=== PATIENT | male | born 1955 | race African-American/Black ===

== ENCOUNTER 2018-06-13 15:06 | Inpatient (IN) ==
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
[2018-06-13] MEDS ORDERED: Dextrose 50% in Water 50 ML Vial IV.PUSH ONE (15:45)
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
[2018-06-13 15:54] LABS: Activated Partial Thrombo Time 24.5 sec (23.4-31.7); INR 1.1 Ratio; Prothrombin Time 10.9 sec (9.8-11.6)
[2018-06-13] MEDS: Sod Chloride 0.9% Inj 1,000 ML IV.SIG SCH ×2 (16:00→17:22)
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
[2018-06-13] MEDS ORDERED: Post-op Orders (for Pharmacy) OTHER ONE (16:07)
[2018-06-13] MEDS ORDERED: Naloxone Inj 0.4 MG/ML Vial IV.PUSH PRN (16:07)
[2018-06-13] MEDS ORDERED: Bisacodyl 10 MG Supp RECTAL PRN (16:07)
[2018-06-13] MEDS ORDERED: DOPamine 400 MG/250 ML Premix 400 MG/250 ML BAG IV.CONT ONE (16:15)
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
[2018-06-13] MEDS: Pantoprazole Inj 40 MG Vial IV.PUSH SCH (17:23)
[2018-06-13 17:25] LABS: Albumin 2.8 g/dL (3.4-5.0); Calcium 7.3 mg/dL (8.5-10.1); Carbon Dioxide 21.6 meq/L (21.0-32.0); Potassium 3.9 meq/L (3.5-5.1)
[2018-06-13] MEDS ORDERED: Atropine Inj 1 MG/10 ML Syringe ONE (17:32)
[2018-06-13] MEDS ORDERED: Atropine Inj 1 MG/10 ML Syringe IV.PUSH ONE (17:35)
[2018-06-13 17:53] LABS: Total Protein 5.4 g/dL (6.4-8.2)
[2018-06-13 17:58] LABS: Troponin I 0.99 ng/mL (0.02-0.05)
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
[2018-06-13] MEDS ORDERED: DOPamine 800 MG/500 ML Premix 800 MG/500 ML PLAST..BAG IV.CONT PRN (18:00)
[2018-06-13] MEDS: Sod Chloride 0.9% Inj 1,000 ML IV.CONT SCH (18:14)
--- NOTE | 2018-06-13 18:42 | ECHRPT ---
Indication: Chest Pain CONCLUSIONS Normal left ventricular size. Wall thickness is normal. The left ventricular systolic function is normal with an estimated ejection fraction in the range of 55-60%. No definite regional wall motion abnormalities are present. The right ventriclar size is upper limits of normal. Trace mitral valve regurgitation. There is trace tricuspid valve regurgitation. Trileaflet aortic valve. Mild aortic valve sclerosis is present. BP: / HR: Rhythm: MEASUREMENTS (Male / Female) Normal Values Technical Quality:Fair 2D ECHO LV Diastolic Diameter PLAX 4.9 cm 4.2 - 5.9 / 3.9 - 5.3 cm LV Systolic Diameter PLAX 3.1 cm IVS Diastolic Thickness 1.1 cm 0.6 - 1.0 / 0.6 - 0.9 cm LVPW Diastolic Thickness 1.0 cm 0.6 - 1.0 / 0.6 - 0.9 cm LV Relative Wall Thickness 0.4 RV Internal Dim ED PLAX 3.4 cm Aortic Root Diameter 3.2 cm LA Systolic Diameter LX 3.6 cm 3.0 - 4.0 / 2.7 - 3.8 cm FINDINGS LEFT VENTRICLE Normal left ventricular size. Wall thickness is normal. The left ventricular systolic function is normal with an estimated ejection fraction in the range of 55-60%. No definite regional wall motion abnormalities are present. RIGHT VENTRICLE The right ventriclar size is upper limits of normal. LEFT ATRIUM The left atrial size is normal. RIGHT ATRIUM The right atrial size is normal. ATRIAL SEPTUM Normal atrial septal thickness without atrial level shunting by limited color doppler interrogation. AORTA The aortic root and proximal ascending aorta are normal in size on limited imaging. MITRAL VALVE Trace mitral valve regurgitation. AORTIC VALVE Trileaflet aortic valve. Mild aortic valve sclerosis is present. TRICUSPID VALVE There is trace tricuspid valve regurgitation. PULMONARY VALVE Trivial pulmonary valve regurgitation. VESSELS The inferior vena cava (IVC) is normal in size. PERICARDIUM There is no pericardial effusion. Brandin William MD (Electronically Signed) Final Date:13 June 2018 18:41
[2018-06-13 19:09] LABS: ABG Base Excess -2.4 mmol/L (-2-2); ABG PCO2 42 mmHg (38-42); ABG PO2 194 mmHg (61-120)
[2018-06-13] MEDS: Senna/Docusate Sodium 8.6/50 MG Tablet PO SCH (20:05)
--- NOTE | 2018-06-13 21:09 | MP ---
cc: Salvador Howell MD DATE OF OPERATION: 06/13/2018 PREOPERATIVE DIAGNOSIS: Neurogenic shock, cervical fracture. POSTOPERATIVE DIAGNOSIS: Neurogenic shock, cervical fracture. PROCEDURE PERFORMED: Triple lumen placement, left subclavian. SURGEON: Salvador Howell MD ANESTHESIA: 1% Xylocaine. ESTIMATED BLOOD LOSS: Minimal. DESCRIPTION OF PROCEDURE: The patient was prepped and draped in the usual fashion. The area was infiltrated with 1% Xylocaine. Needle was inserted in the left subclavian vein. Through the needle, the J-wire was passed. Over the J wire, dilator and triple lumen were placed. Triple lumen sutured was in place with 2-0 silk. The patient tolerated the procedure well. MD JOSE Kendall/ryne , 06:07 PM , 06:11 PM
[2018-06-14 00:19] LABS: Hematocrit 38.1 % (39.0-51.0); Hemoglobin 12.8 gm/dL (13.0-17.0); Lymph # (Auto) 0.5 th/mm3 (1.0-4.8); Mean Corpuscular HGB Conc 33.6 % (32.0-36.0); Mean Corpuscular Volume 80.3 fL (80.0-100.0); Mean Platelet Volume 8.7 fL (7.0-11.0); Mono # (Auto) 0.5 th/mm3 (0.0-0.9); Neut # (Auto) 8.2 th/mm3 (1.8-7.7); Platelet Count 176 th/mm3 (150-450); Red Blood Count 4.75 mil/mm3 (4.50-5.90); Red Cell Distribution Width 15.1 % (11.6-17.2); White Blood Count 9.1 th/mm3 (4.0-11.0)
[2018-06-14] MEDS: Sod Chloride 0.9% Inj 1,000 ML IV.CONT SCH ×3 (04:14→23:44)
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
[2018-06-14 05:40] LABS: Hematocrit 38.4 % (39.0-51.0); Hemoglobin 12.7 gm/dL (13.0-17.0); Lymph # (Auto) 0.5 th/mm3 (1.0-4.8); Lymph % (Auto) 5.3 % (9.0-44.0); Mean Corpuscular HGB Conc 33.1 % (32.0-36.0); Mean Corpuscular Volume 81.6 fL (80.0-100.0); Mean Platelet Volume 8.7 fL (7.0-11.0); Mono # (Auto) 0.4 th/mm3 (0.0-0.9); Mono % (Auto) 4.6 % (0.0-8.0); Neut # (Auto) 8.5 th/mm3 (1.8-7.7); Neut % (Auto) 90.1 % (16.0-70.0); Platelet Count 146 th/mm3 (150-450); Red Blood Count 4.71 mil/mm3 (4.50-5.90); Red Cell Distribution Width 15.3 % (11.6-17.2); White Blood Count 9.4 th/mm3 (4.0-11.0)
[2018-06-14 05:50] LABS: ABG Base Excess -0.6 mmol/L (-2-2); ABG PCO2 43 mmHg (38-42); ABG PO2 97 mmHg (61-120)
[2018-06-14] MEDS ORDERED: Dextrose 50% in Water 50 ML Vial IV.PUSH PRN (05:54)
[2018-06-14 06:18] LABS: Calcium 7.7 mg/dL (8.5-10.1); Carbon Dioxide 25.2 meq/L (21.0-32.0); Potassium 3.7 meq/L (3.5-5.1)
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
[2018-06-14] MEDS: Senna/Docusate Sodium 8.6/50 MG Tablet PO SCH ×2 (08:21→20:04)
[2018-06-14] MEDS: Chlorhexidine 0.12% Oral Kit 15 ML UDC OROPHARYNG SCH ×2 (08:21→20:04)
--- NOTE | 2018-06-14 08:35 | ECG ---
Date Performed: 06/13/2018 Time Performed: 17:00:30 PTAGE: 62 years EKG: Possible ectopic atrial bradycardia with PAC(s). Prolonged QT interval Septal T wave change s are nonspecific Borderline ECG NO PREVIOUS TRACING DOCTOR: Timmy Scott Interpretating Date/Time 06/14/2018 08:32:21
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
--- NOTE | 2018-06-14 11:02 | P.PNNS ---
Subjective Interval history: intubated, sedated. Physical Exam Vital signs: Vital Signs 06/13/18 15:19 06/13/18 16:03 06/13/18 16:19 Temperature Pulse Rate Respiratory Rate 16 Blood Pressure 97/57 L Pulse Oximetry 100 100 06/13/18 16:21 06/13/18 16:23 06/13/18 16:25 Temperature 93.7 F L 93.7 F L 93.6 F L Pulse Rate 51 L 49 L 49 L Respiratory Rate 17 16 16 Blood Pressure 95/55 L 92/53 L 97/54 L Pulse Oximetry 99 98 97 06/13/18 16:27 06/13/18 16:29 06/13/18 16:30 Temperature 93.6 F L 93.6 F L 93.6 F L Pulse Rate 49 L 54 L 54 L Respiratory Rate 16 17 17 Blood Pressure 108/55 L 112/62 Pulse Oximetry 97 97 98 06/13/18 16:31 06/13/18 16:33 06/13/18 16:35 Temperature 93.6 F L 93.6 F L 93.6 F L Pulse Rate 52 L 54 L 52 L Respiratory Rate 16 21 17 Blood Pressure 112/60 101/56 L 107/55 L Pulse Oximetry 98 99 98 06/13/18 16:37 06/13/18 16:39 06/13/18 16:41 Temperature 93.4 F L 93.4 F L 93.4 F L Pulse Rate 47 L 45 L 49 L Respiratory Rate 16 17 18 Blood Pressure 106/55 L 96/52 L 96/53 L Pulse Oximetry 98 97 97 06/13/18 16:43 06/13/18 16:45 06/13/18 16:47 Temperature 93.2 F L 93.2 F L 93.4 F L Pulse Rate 47 L 44 L 47 L Respiratory Rate 25 H 16 19 Blood Pressure 97/54 L 96/53 L 102/52 L Pulse Oximetry 97 97 98 06/13/18 16:49 06/13/18 16:51 06/13/18 17:00 Temperature 93.4 F L 93.2 F L 93.0 F L Pulse Rate 47 L 40 L 42 L Respiratory Rate 21 25 H Blood Pressure 104/53 L 111/53 L Pulse Oximetry 98 98 98 06/13/18 17:01 06/13/18 17:15 06/13/18 17:16 Temperature 92.8 F L 93.0 F L 93.0 F L Pulse Rate 41 L 41 L 43 L Respiratory Rate 22 17 16 Blood Pressure 120/58 L 118/58 L Pulse Oximetry 98 97 97 06/13/18 17:30 06/13/18 17:31 06/13/18 17:45 Temperature 93.0 F L 93.0 F L 93.2 F L Pulse Rate 43 L 95 H Respiratory Rate 16 16 16 Blood Pressure 110/55 L Pulse Oximetry 98 98 100 06/13/18 17:46 06/13/18 18:00 06/13/18 18:01 Temperature 93.2 F L 93.6 F L 93.6 F L Pulse Rate 95 H 88 88 Respiratory Rate 16 16 16 Blood Pressure 110/61 103/62 Pulse Oximetry 100 100 100 06/13/18 18:15 06/13/18 20:00 06/13/18 20:01 Temperature 93.9 F L 96.4 F L 96.4 F L Pulse Rate 88 78 79 Respiratory Rate 16 16 16 Blood Pressure 117/80 Pulse Oximetry 100 100 100 06/13/18 20:16 06/13/18 20:31 06/13/18 20:46 Temperature 96.8 F L 97.2 F L 97.5 F L Pulse Rate 81 80 82 Respiratory Rate 16 16 16 Blood Pressure 115/79 117/80 116/81 Pulse Oximetry 100 100 100 06/13/18 20:53 06/13/18 21:00 06/13/18 21:01 Temperature 97.9 F 97.9 F Pulse Rate 84 82 Respiratory Rate 16 16 16 Blood Pressure 122/86 Pulse Oximetry 100 100 100 06/13/18 21:16 06/13/18 21:31 06/13/18 21:46 Temperature 98.4 F 98.8 F 99.1 F Pulse Rate 60 61 61 Respiratory Rate 16 16 16 Blood Pressure 96/63 L 95/59 L 94/59 L Pulse Oximetry 100 100 100 06/13/18 22:00 06/13/18 22:01 06/13/18 22:16 Temperature 99.3 F 99.3 F 99.7 F H Pulse Rate 61 61 61 Respiratory Rate 16 16 16 Blood Pressure 92/61 L 95/62 L Pulse Oximetry 100 100 100 06/13/18 22:31 06/13/18 22:46 06/13/18 23:00 Temperature 99.9 F H 100.0 F H 100.2 F H Pulse Rate 62 63 64 Respiratory Rate 16 16 16 Blood Pressure 93/61 L 96/62 L Pulse Oximetry 100 100 100 06/13/18 23:01 06/13/18 23:16 06/13/18 23:31 Temperature 100.2 F H 100.4 F H 100.6 F H Pulse Rate 63 63 64 Respiratory Rate 16 16 16 Blood Pressure 96/63 L 98/62 L 96/61 L Pulse Oximetry 100 100 100 06/13/18 23:46 06/14/18 00:00 06/14/18 00:01 Temperature 100.8 F H 100.8 F H 100.8 F H Pulse Rate 63 64 64 Respiratory Rate 16 16 16 Blood Pressure 97/61 L 100/61 Pulse Oximetry 100 100 100 06/14/18 00:16 06/14/18 00:31 06/14/18 00:40 Temperature 100.8 F H 100.8 F H Pulse Rate 63 63 Respiratory Rate 16 16 16 Blood Pressure 99/61 L 96/59 L Pulse Oximetry 100 100 100 06/14/18 00:46 06/14/18 01:00 06/14/18 01:01 Temperature 100.6 F H 100.6 F H 100.6 F H Pulse Rate 63 62 63 Respiratory Rate 16 16 16 Blood Pressure 94/60 L 97/60 L Pulse Oximetry 100 100 100 06/14/18 01:16 06/14/18 01:31 06/14/18 01:46 Temperature 100.6 F H 100.4 F H 100.4 F H Pulse Rate 62 62 61 Respiratory Rate 16 16 16 Blood Pressure 95/60 L 96/61 L 94/60 L Pulse Oximetry 100 100 100 06/14/18 02:00 06/14/18 02:01 06/14/18 02:16 Temperature 100.4 F H 100.4 F H 100.2 F H Pulse Rate 61 61 60 Respiratory Rate 16 16 16 Blood Pressure 98/61 L 97/61 L Pulse Oximetry 100 100 100 06/14/18 02:31 06/14/18 02:46 06/14/18 03:00 Temperature 100.2 F H 100.0 F H 100.0 F H Pulse Rate 60 59 L 59 L Respiratory Rate 16 16 16 Blood Pressure 102/61 100/63 Pulse Oximetry 100 100 100 06/14/18 03:01 06/14/18 03:16 06/14/18 03:31 Temperature 100.0 F H 99.9 F H 99.9 F H Pulse Rate 59 L 59 L 59 L Respiratory Rate 16 16 16 Blood Pressure 99/62 L 97/61 L 97/62 L Pulse Oximetry 100 100 100 06/14/18 03:46 06/14/18 04:00 06/14/18 04:01 Temperature 99.7 F H 99.5 F 99.7 F H Pulse Rate 59 L 59 L 58 L Respiratory Rate 16 16 16 Blood Pressure 102/62 100/62 Pulse Oximetry 100 100 100 06/14/18 04:16 06/14/18 04:20 06/14/18 04:31 Temperature 99.3 F 99.3 F Pulse Rate 59 L 59 L Respiratory Rate 16 16 11 L Blood Pressure 99/61 L 99/62 L Pulse Oximetry 100 100 100 06/14/18 04:46 06/14/18 05:00 06/14/18 05:01 Temperature 99.3 F 99.3 F 99.3 F Pulse Rate 59 L 59 L 59 L Respiratory Rate 16 16 16 Blood Pressure 99/61 L 96/60 L Pulse Oximetry 100 100 100 06/14/18 05:16 06/14/18 05:46 06/14/18 06:00 Temperature 99.1 F 99.0 F 99.0 F Pulse Rate 58 L 59 L 58 L Respiratory Rate 16 16 16 Blood Pressure 98/61 L 103/57 L Pulse Oximetry 100 100 100 06/14/18 06:01 06/14/18 06:16 06/14/18 06:31 Temperature 99.0 F 99.0 F 98.8 F Pulse Rate 58 L 58 L 59 L Respiratory Rate 16 16 16 Blood Pressure 92/57 L 92/59 L 99/64 L Pulse Oximetry 100 100 100 06/14/18 10:12 Temperature Pulse Rate 57 L Respiratory Rate 16 Blood Pressure Pulse Oximetry 100 Intake & Output 06/13/18 06/14/18 06/14/18 18:59 06:59 18:59 Intake Total 1999 1250 / 1250 Output Total 215 / 2150 1200 / 1200 Balance -150 / -150 50 / 50 Weight 75.6 kg 85.2 kg Intake: IV 1999 1250 / 1250 NS Inj 1,000 ML @ 100 mls/hr IV 1000 / 1000 .CONT .Q10H [facility] Rx#:[id number] Levophed-Dextrose 4 mg/250 ml 250 / 250 Drip 4 mg In 250 ml @ 2 MCG/MIN 7.5 mls/hr IV.SIG TITRATE PRN Rx#:[id number] NS Inj 1,000 ML @ 1000 mls/hr 1999 IV.SIG .Q1H [facility] Rx#:[id number] Output: Urine Amount (Catheter) 2149 1050 / 1050 Indwelling Urethral Catheter 2149 1050 / 1050 Gastric Drainage 150 / 150 Oral Orogastric Tube 150 / 150 Other: Weight On Admission 75.6 kg Narrative: GENERAL: Intubated sedated SKIN: Warm and dry. HEAD: Atraumatic. Normocephalic. EYES: Pupils equal and round. No scleral icterus. No injection or drainage. ENT: No nasal bleeding or discharge. Mucous membranes pink and moist. NECK: Trachea midline. No JVD. Cervical collar in place. CARDIOVASCULAR: Regular rate and rhythm. RESPIRATORY: mechanically ventilated GASTROINTESTINAL: Abdomen soft, nondistended. MUSCULOSKELETAL: Extremities without clubbing, cyanosis, or edema. No obvious deformities. NEUROLOGICAL: Sedated, pupils pinpoint bilaterally. Conjugate gaze. Not following commands for testing, gross withdrawal RUE to nailbed pressure. - Urinary Catheter Management Indwelling Urethral Catheter Cath placed during this visit: yes Reason for continuing: Hourly intake/output Insertion date: 06/13/18 Assessment and Plan - Plan Adult male status post trauma code and CPR resuscitation, hemodynamically unstable Cervical spinal fractures Cervical Spine CT 06/13/18 15:10 CONCLUSION: 1. Slightly comminuted fracture of both the anterior and posterior arch of C1 with associated type II dens fracture 2. Hyperflexion injury suspected at C3-C4 with anterior teardrop. 3. Minimal anterior wedging of C5 4. Constellation images would suggest a high cervical spine injury. MRI could be used to confirm as soon as clinically stable. Head CT 06/13/18 15:10 CONCLUSION: No evidence of acute intracranial pathology. No masses are identified. Unstable fracture of the anterior and posterior arch of C1 Neuro: neuro checks in a serial fashion. No clinical evidence of severe head injury or intracranial hemorrhage. Poor mental status likely related to cardiac arrest and anoxic injury. For MRI Brain. Cervical fractures. cont supportive care. [place] J collar. When he is stable, will obtain MRI cervical spine. For MRI Cervical spine. Pulmonary: Full mechanical ventilation, aggressive pulmonary toilette, nasotracheal suction, and breathing treatments with nebulizers. Arterial line and central venous catheter Daily PT and OT Renal: Continue to monitor closely urine output, BUN and creatinine Endocrine: Continue to Monitor serial Acu checks and SSI as needed in detail ID continue to monitor for signs of infection Continue Protonix for stress ulcer prophylaxis Continue Pk hose and SCD's for DVT prophylaxis Further recommendations will be provided depending on the patient's clinical evaluation and follow up studies. Discussed with trauma surgeon
[2018-06-14] MEDS: Enoxaparin Inj 40 MG/0.4 ML Syringe SQ SCH (11:17)
[2018-06-14] MEDS: Oral Hygiene Kit OROPHARYNG SCH ×3 (11:17→23:44)
--- NOTE | 2018-06-14 14:34 | MR ---
EXAM DATE: 06/14/2018 2:10 PM EST AGE/SEX: 62 years / Male INDICATIONS: . Anoxic injury. CLINICAL DATA: This is the patient's subsequent encounter. Patient reports that signs and symptoms h ave been present for 2 days and indicates a pain score of Nonresponsive. MEDICAL/SURGICAL HISTORY: None. None. COMPARISON: [facility] – [place], [place] CERVICAL SPINE W/O CONTRAST, 06/13/2018. . TECHNIQUE: Multiplanar, multisequence examination of the brain was performed without contrast. FINDINGS: Cerebrum: Focal encephalomalacia with underlying gliosis is identified in the right frontal lobe. Pu nctate foci of magnetic susceptibility are identified along the argueta-white junction of the frontal lo bes. There is focal susceptibility identified in the occipital horns of both lateral ventricles. Cortical restricted diffusion is evident in the left occipital lobe. White Matter: Mild to moderate periventricular T2 hyperintensities are seen throughout both cerebral hemispheres. Posterior Fossa: Several foci of restricted diffusion are identified in the right cerebellar hemisphe re. T2 hyperintensity is identified in the lower brainstem at the cervical medullary junction extendi ng into the cervical spinal cord. Diffusion Imaging: Diffusion abnormalities are identified in the left occipital lobe and right cereb ellum. Extracranial: The visualized portions of the orbits and paranasal sinuses are unremarkable. CONCLUSION: 1. Areas of restricted diffusion are noted in the left occipital lobe and right cerebellum character istic of small acute infarcts. 2. Punctate foci of magnetic susceptibility characteristic of microbleeds along the argueta-white junct ion in the frontal lobes. These are characteristic of axonal injury. 3. Mild to moderate cerebral white matter T2 hyperintensity characteristic of chronic ischemic micro vascular disease. 4. Small amount of hemorrhage is identified in both ventricles. 5. No significant mass effect or extra-axial fluid collections. 6. T2 hyperintensity in the lower brainstem and cervical spinal cord characteristic of edema from th e patient's cervical injury. Electronically signed by: Curtis Richey MD 06/14/2018 2:33 PM EST
--- NOTE | 2018-06-14 14:54 | MR ---
EXAM DATE: 06/14/2018 2:30 PM EST AGE/SEX: 62 years / Male INDICATIONS: Trauma. CLINICAL DATA: This is the patient's subsequent encounter. Patient reports that signs and symptoms h ave been present for 2 days and indicates a pain score of Nonresponsive. MEDICAL/SURGICAL HISTORY: None. None. COMPARISON: [facility] [place] CERV[place]/O CONTRAST, 06/13/2018. . TECHNIQUE: Multiplanar, multisequence MRI examination of the cervical spine was performed without co ntrast. FINDINGS: ALIGNMENT: Focal displacement of the odontoid in relation to the body of C2 has developed compared t o the CT scan. There is anterior displacement of the dens by approximately 5 mm. Very slight anterolisthesis is noted of C6 on C7. Cervical vertebral body alignment is otherwise well -maintained.. FACET AND OSSEOUS STRUCTURES: Mildly displaced fracture is identified through the base of the odonto id with slight subluxation as described above. C1 fractures are not clearly visualized. There are no other vertebral body fractures identified. Face t joints are satisfactory aligned. Small effusions are identified in the C3-4 facet joints. Significa nt T2 hyperintensity and inflammation is seen in the posterior paraspinal muscles and supporting stru ctures throughout the cervical spine. There are no paraspinal soft tissue hematomas. INTERVERTEBRAL DISC SPACES: Mild to moderate degenerative disc disease is noted. Posterior broad-bas ed disc osteophyte complex is identified at C6-7. There is marginal spondylosis at C4-5 and C5-6. The re is no evidence of traumatic disc herniation NEUROLOGIC STRUCTURES: Abnormal signal intensity is identified in the upper cervical spinal cord exte nding into the lower medulla oblongata. Gradient echo imaging demonstrates susceptibility within the spinal cord at the C2 level. There is slight cord expansion and small anterior perimedullary hematoma . Spinal cord edema extends caudally to approximately the bottom of C3. There are no epidural or intradural hematomas. Also noted is significant edema surrounding the right-sided carotid sheath structures. CONCLUSION: 1. Traumatic spinal cord injury at the C2 level which includes edema and hemorrhage. Compromised cor d integrity is suspected 2. Mildly displaced fracture through the base of the odontoid 3. No evidence of significant spinal canal compromise, cord compression or significant extra-axial h ematoma. 4. Posterior paraspinal soft tissue injury with edema 5. Satisfactory alignment of the facet joints without subluxation 6. Edematous changes surrounding the right carotid sheath structures. Electronically signed by: Curtis Richey MD 06/14/2018 2:53 PM EST
[2018-06-14] MEDS: Pantoprazole Inj 40 MG Vial IV.PUSH SCH (16:42)
[2018-06-14] MEDS ORDERED: Sod Chloride 0.9% Inj 1,000 ML IV.SIG ONE (18:30)
--- NOTE | 2018-06-15 04:13 | XR ---
EXAM DATE: 06/15/2018 4:06 AM EST AGE/SEX: 62 years / Male INDICATIONS: Aspiration. CLINICAL DATA: This is the patient's initial encounter. Patient reports that signs and symptoms have been present for 2 days and indicates a pain score of Nonresponsive. MEDICAL/SURGICAL HISTORY: . Cervical spine fracture Non-responsive. COMPARISON: [facility], CHEST 1V SINGLE AP, 06/14/2018. . FINDINGS: Single AP view the chest. Endotracheal tube, nasogastric tube, left subclavian central venous cathete r remain in place. Increased patchy opacity at the right lower lung zone with mild obscuration of the hemidiaphragm. Lungs otherwise clear. No evidence of pleural effusion or pneumothorax. CONCLUSION: New patchy right lung base opacity indicating atelectasis versus mild consolidation. Electronically signed by: Reggie Huddleston MD 06/15/2018 4:12 AM EST
[2018-06-15] MEDS: Oral Hygiene Kit OROPHARYNG SCH ×3 (04:27→16:10)
[2018-06-15 05:32] LABS: ABG Base Excess 1.9 mmol/L (-2-2); ABG PCO2 46 mmHg (38-42); ABG PO2 83 mmHg (61-120)
[2018-06-15 06:14] LABS: Hematocrit 36.2 % (39.0-51.0); Lymph # (Auto) 0.6 th/mm3 (1.0-4.8); Lymph % (Auto) 6.4 % (9.0-44.0); Mean Corpuscular Volume 81.9 fL (80.0-100.0); Mean Platelet Volume 8.9 fL (7.0-11.0); Mono # (Auto) 0.5 th/mm3 (0.0-0.9); Mono % (Auto) 5.9 % (0.0-8.0); Neut # (Auto) 7.5 th/mm3 (1.8-7.7); Neut % (Auto) 87.7 % (16.0-70.0); Platelet Count 122 th/mm3 (150-450); Red Blood Count 4.42 mil/mm3 (4.50-5.90); Red Cell Distribution Width 15.6 % (11.6-17.2); White Blood Count 8.5 th/mm3 (4.0-11.0)
[2018-06-15 06:45] LABS: Anion Gap 6 meq/L (5-15); Blood Urea Nitrogen 21 mg/dL (7-18); Calcium 8.3 mg/dL (8.5-10.1); Chloride 117 meq/L (98-107); Glomerular Filtration Rate Greater Than 89 mL/min (>89); Glucose,Random 122 mg/dL (74-106); Potassium 3.6 meq/L (3.5-5.1); Sodium 150 meq/L (136-145)
[2018-06-15] MEDS: Senna/Docusate Sodium 8.6/50 MG Tablet PO SCH ×2 (08:33→21:38)
[2018-06-15] MEDS: Enoxaparin Inj 40 MG/0.4 ML Syringe SQ SCH (08:33)
[2018-06-15] MEDS: Chlorhexidine 0.12% Oral Kit 15 ML UDC OROPHARYNG SCH ×2 (08:33→20:30)
[2018-06-15] MEDS: Sod Chloride 0.9% Inj 1,000 ML IV.CONT SCH ×3 (08:34→19:01)
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
--- NOTE | 2018-06-15 14:51 | P.PNPAL ---
Palliative care SW asked to assist with contacting patient's son, Triny Barros , currently incarcerated in [facility] [place] [phone]. Spoke with classification packing supervisor, Ms. Hendrix. Phone conference with son set up for 06/16 at 10am (#[phone]). Follow-up on accurint request to obtain potential family members. [employer] produced possible match: * Marifer Barros: [phone] (VM left requesting call back); [phone] ( just rings, unable to leave message)
[2018-06-15] MEDS: Pantoprazole Inj 40 MG Vial IV.PUSH SCH (17:32)
--- NOTE | 2018-06-15 22:40 | XR ---
EXAM DATE: 06/15/2018 10:37 PM EST AGE/SEX: 62 years / Male INDICATIONS: Shortness of breath. CLINICAL DATA: This is the patient's subsequent encounter. Patient reports that signs and symptoms h ave been present for 2 days and indicates a pain score of Nonresponsive. MEDICAL/SURGICAL HISTORY: . Cervical spine fracture. None. COMPARISON: [facility], CHEST 1V SINGLE AP, 06/15/2018. . FINDINGS: 2 AP portable erect views of the chest were obtained and again demonstrate the endotracheal tube in p lace with the tip at the level of thoracic inlet. The left subclavian central venous line remains in place. The nasogastric tube is unchanged in position. The heart size appears enlarged. Abnormal opaci ty is present in the right lung base which appears mildly increased. There is blunting of the right c ostophrenic angle. CONCLUSION: Increased opacity at the right lung base with blunting of the costophrenic angle. The findings are co ncerning for pneumonia. Electronically signed by: David Mckinney MD 06/15/2018 10:39 PM EST
[2018-06-15 23:03] LABS: Baso % (Auto) 0.1 % (0.0-2.0); Hematocrit 34.9 % (39.0-51.0); Hemoglobin 11.5 gm/dL (13.0-17.0); Lymph # (Auto) 0.5 th/mm3 (1.0-4.8); Lymph % (Auto) 7.6 % (9.0-44.0); Mean Corpuscular HGB Conc 32.9 % (32.0-36.0); Mean Corpuscular Hemoglobin 26.6 pg (27.0-34.0); Mean Corpuscular Volume 80.8 fL (80.0-100.0); Mean Platelet Volume 8.9 fL (7.0-11.0); Mono # (Auto) 0.5 th/mm3 (0.0-0.9); Mono % (Auto) 8.1 % (0.0-8.0); Neut # (Auto) 5.1 th/mm3 (1.8-7.7); Neut % (Auto) 84.2 % (16.0-70.0); Platelet Count 118 th/mm3 (150-450); Red Blood Count 4.32 mil/mm3 (4.50-5.90); Red Cell Distribution Width 15.4 % (11.6-17.2)
[2018-06-15 23:21] LABS: Albumin 2.5 g/dL (3.4-5.0); Anion Gap 7 meq/L (5-15); Aspartate Aminotransferase 132 U/L (15-37); Blood Urea Nitrogen 21 mg/dL (7-18); Carbon Dioxide 27.5 meq/L (21.0-32.0); Chloride 117 meq/L (98-107); Glomerular Filtration Rate Greater Than 89 mL/min (>89); Glucose,Random 125 mg/dL (74-106); Potassium 3.4 meq/L (3.5-5.1); Sodium 151 meq/L (136-145)
[2018-06-15 23:22] LABS: Alanine Aminotransferase 139 U/L (12-78)
[2018-06-15 23:23] LABS: Activated Partial Thrombo Time 28.7 sec (23.4-31.7); INR 1.1 Ratio; Prothrombin Time 11.1 sec (9.8-11.6)
[2018-06-15 23:24] LABS: Alkaline Phosphatase 45 U/L (45-117)
[2018-06-16 00:39] LABS: ABG Base Excess 2.9 mmol/L (-2-2); ABG PCO2 42 mmHg (38-42); ABG PO2 83 mmHg (61-120)
[2018-06-16] MEDS: Oral Hygiene Kit OROPHARYNG SCH ×3 (00:58→11:50)
[2018-06-16] MEDS: Piperacil/Tazo 3.375 GM Premix 50 ML IV.SIG SCH ×2 (00:58→08:26)
[2018-06-16] MEDS ORDERED: Sodium Phosphate Inj 30 MMOL in Sodium Chlor 0.9% Inj 250 ML IV.SIG PRN (01:11)
[2018-06-16] MEDS ORDERED: Potassium Phosphate 500 MG Soluble Tablet PO PRN ×2 (01:11)
[2018-06-16] MEDS ORDERED: Potassium Chlor 20 mEq Premix 20 MEQ/100 ML PIGGYBACK IV.SIG PRN ×2 (01:11)
[2018-06-16] MEDS ORDERED: Magnesium Sulfate Inj 4 GM in Sodium Chlor 0.9% Inj 92 ML IV.SIG PRN (01:11)
[2018-06-16] MEDS ORDERED: Magnesium Sulfate Inj 2 GM in Sodium Chlor 0.9% Inj 96 ML IV.SIG PRN (01:11)
[2018-06-16] MEDS ORDERED: Potassium Phosphate Inj 30 MMOL in Sodium Chlor 0.9% Inj 250 ML IV.SIG PRN (01:11)
[2018-06-16] MEDS ORDERED: Potassium Chloride 25 MEQ Effervescent Tablet PO PRN (01:11)
[2018-06-16] MEDS ORDERED: Magnesium Oxide 400 MG Tablet PO PRN (01:11)
[2018-06-16] MEDS ORDERED: Potassium Chlor 40 mEq Premix 40 MEQ/100 ML PIGGYBACK IV.SIG PRN ×2 (01:11)
[2018-06-16 01:15] LABS: Bilirubin,Urine Negative (Negative); Clarity,Urine Cloudy (Clear); Color,Urine Amber (Yellw/Straw); Glucose,Urine (UA) Negative (Negative); Leukocyte Esterase,Urine Large (Negative); Mucus,Urine Many /lpf (Occasional); Nitrite,Urine Negative (Negative); Specific Gravity,Urine 1.039 (1.002-1.035)
[2018-06-16 04:39] LABS: ABG Base Excess 3.4 mmol/L (-2-2); ABG PCO2 40 mmHg (38-42); ABG PO2 86 mmHg (61-120)
[2018-06-16] MEDS: Sod Chloride 0.9% Inj 1,000 ML IV.CONT SCH (05:58)
[2018-06-16 07:02] LABS: Eos % (Auto) 0.1 % (0.0-4.0); Hemoglobin 11.3 gm/dL (13.0-17.0); Lymph # (Auto) 0.5 th/mm3 (1.0-4.8); Mean Corpuscular HGB Conc 33.2 % (32.0-36.0); Mean Corpuscular Hemoglobin 26.9 pg (27.0-34.0); Mean Corpuscular Volume 81.1 fL (80.0-100.0); Mean Platelet Volume 9.2 fL (7.0-11.0); Mono # (Auto) 0.5 th/mm3 (0.0-0.9); Neut # (Auto) 4.2 th/mm3 (1.8-7.7); Neut % (Auto) 81.9 % (16.0-70.0); Platelet Count 117 th/mm3 (150-450); Red Blood Count 4.19 mil/mm3 (4.50-5.90); Red Cell Distribution Width 15.6 % (11.6-17.2); White Blood Count 5.1 th/mm3 (4.0-11.0)
[2018-06-16 07:09] LABS: Activated Partial Thrombo Time 28.3 sec (23.4-31.7); INR 1.1 Ratio; Prothrombin Time 10.9 sec (9.8-11.6)
[2018-06-16 07:31] LABS: Alanine Aminotransferase 129 U/L (12-78); Albumin 2.4 g/dL (3.4-5.0); Anion Gap 6 meq/L (5-15); Aspartate Aminotransferase 128 U/L (15-37); Blood Urea Nitrogen 23 mg/dL (7-18); Carbon Dioxide 28.3 meq/L (21.0-32.0); Chloride 119 meq/L (98-107); Glomerular Filtration Rate Greater Than 89 mL/min (>89); Glucose,Random 121 mg/dL (74-106); Potassium 3.5 meq/L (3.5-5.1); Sodium 153 meq/L (136-145)
[2018-06-16 07:42] LABS: Alkaline Phosphatase 47 U/L (45-117)
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
[2018-06-16 08:19] LABS: Eosinophils 1 % (0-4); Lymphocytes 9 % (9-44); Monocytes 9 % (0-8); Platelet Morphology Normal (Normal)
[2018-06-16 08:20] LABS: RBC Morphology Normal (Normal)
[2018-06-16] MEDS: Senna/Docusate Sodium 8.6/50 MG Tablet PO SCH (08:26)
[2018-06-16] MEDS: Enoxaparin Inj 40 MG/0.4 ML Syringe SQ SCH (08:26)
[2018-06-16] MEDS: Chlorhexidine 0.12% Oral Kit 15 ML UDC OROPHARYNG SCH (08:26)
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
[2018-06-16 13:36] LABS: Eos % (Auto) 0.4 % (0.0-4.0); Hematocrit 33.4 % (39.0-51.0); Hemoglobin 11.1 gm/dL (13.0-17.0); Lymph # (Auto) 0.5 th/mm3 (1.0-4.8); Lymph % (Auto) 9.7 % (9.0-44.0); Mean Corpuscular HGB Conc 33.1 % (32.0-36.0); Mean Corpuscular Hemoglobin 27.2 pg (27.0-34.0); Mean Platelet Volume 9.5 fL (7.0-11.0); Mono # (Auto) 0.5 th/mm3 (0.0-0.9); Mono % (Auto) 8.6 % (0.0-8.0); Neut # (Auto) 4.5 th/mm3 (1.8-7.7); Neut % (Auto) 81.3 % (16.0-70.0); Platelet Count 121 th/mm3 (150-450); Red Blood Count 4.07 mil/mm3 (4.50-5.90); Red Cell Distribution Width 15.5 % (11.6-17.2); White Blood Count 5.6 th/mm3 (4.0-11.0)
[2018-06-16 13:46] LABS: Activated Partial Thrombo Time 31.8 sec (23.4-31.7); INR 1.2 Ratio; Prothrombin Time 11.9 sec (9.8-11.6)
[2018-06-16] MEDS ORDERED: Hyoscyamine Inj 0.5 MG/ML Ampul IV.PUSH ONE (14:00)
[2018-06-16] MEDS ORDERED: Morphine Sulfate Inj 8 MG/ML Vial IV.PUSH ONE (14:00)
[2018-06-16 14:01] LABS: Albumin 2.3 g/dL (3.4-5.0); Anion Gap 7 meq/L (5-15); Aspartate Aminotransferase 114 U/L (15-37); Blood Urea Nitrogen 22 mg/dL (7-18); Calcium 9.3 mg/dL (8.5-10.1); Carbon Dioxide 28.2 meq/L (21.0-32.0); Chloride 118 meq/L (98-107); Glomerular Filtration Rate Greater Than 89 mL/min (>89); Glucose,Random 110 mg/dL (74-106); Potassium 3.8 meq/L (3.5-5.1); Sodium 153 meq/L (136-145)
[2018-06-16 14:02] LABS: Alanine Aminotransferase 124 U/L (12-78)
[2018-06-16 14:04] LABS: Alkaline Phosphatase 48 U/L (45-117); Total Protein 6.2 g/dL (6.4-8.2)
[2018-06-16] MEDS ORDERED: Heparin - SQ 10,000 UNITS/ML Vial SQ ONE (14:15)
[2018-06-16 14:17] LABS: Amorphous Sediment,Urine Occasional /hpf; Bacteria,Urine Rare /hpf; Bilirubin,Urine Negative (Negative); Clarity,Urine Cloudy (Clear); Color,Urine Yellow (Yellw/Straw); Glucose,Urine (UA) Negative (Negative); Leukocyte Esterase,Urine Large (Negative); Mucus,Urine Few /lpf (Occasional); Nitrite,Urine Negative (Negative); Specific Gravity,Urine 1.038 (1.002-1.035)
[2018-06-16] MEDS ORDERED: Morphine Inj 4 MG/ML Vial IV.PUSH ONE (14:30)
[2018-06-16] MEDS ORDERED: Morphine Sulfate Inj 8 MG/ML Vial IV.PUSH PRN (15:00)
[2018-06-16] MEDS ORDERED: Morphine Inj 4 MG/ML Vial IV.PUSH PRN (15:00)
[2018-06-16] MEDS ORDERED: Hyoscyamine Inj 0.5 MG/ML Ampul IV.PUSH PRN (15:00)
[2018-06-16 15:34] VITALS: PULSE 65
[2018-06-16] MEDS ORDERED: Morphine Inj 4 MG/ML Vial IV.PUSH SCH (16:00)
[2018-06-16 16:14] VITALS: O2SAT 99
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
[2018-06-16 17:03] VITALS: BP 107/65; RESP 39; TEMP 98.8
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
== END 2018-06-16 19:30 | disposition expired ==
LOC: NEPI 15:06 → EDBD 15:23 → NEDA 15:23 → N03 16:05
PROVIDERS: ADMIT Surgery; ATTEND Surgery